=== PATIENT | male | born 1940 | race Caucasian/White ===

== ENCOUNTER → 2024-11-09 09:40 | Outpatient (BNVA) | payer MEDICARE, OTHER, SELFPAY | PROVIDERS: Family Provider Internal Medicine; Visit Provider Internal Medicine Cardiovascular Disease | DX: I48.91 Unspecified atrial fibrillation (principal) | CPT/HCPCS: 93229 ==

== ENCOUNTER → 2024-12-10 09:59 | Outpatient (BNVA) | payer MEDICARE, SELFPAY | PROVIDERS: Family Provider Internal Medicine; Visit Provider Internal Medicine Cardiovascular Disease | DX: R00.1 Bradycardia, unspecified (principal); R73.03 Prediabetes; Z87.891 Personal history of nicotine dependence | CPT/HCPCS: 99214 ==